=== PATIENT | female | born 1940 | race Two or more races ===

== ENCOUNTER 2017-05-31 09:32 | Inpatient (IN) | payer OTHER ==
--- NOTE | 2017-05-31 10:23 | PDOC ---
History of Present Illness - General Chief Complaint: Weakness Stated Complaint: WEAKNESS/LOSS OF APPETITE Time Seen by Provider: 05/31/17 10:20 History Source: Patient - History of Present Illness Initial Comments: 05/31/17 10:51 CC: Acute onset of shortness of breath Patient is a 76 y.o. female with a PMH of HTN, NIDDM who presents c/o shortness of breath upon awakening this morning. Patient denies any chest pain, nausea, diaphoresis, however does not a headache consistent with headaches she experience frequently. Patient denies any recent sick contact, travel or medication changes. Patient has not recieved flu shot. Past History - Past Medical History Allergies/Adverse Reactions: Allergies Allergy/AdvReac Type Severity Reaction Status Date / Time morphine Allergy Verified 05/31/17 13:44 Home Medications: Ambulatory Orders Amlodipine Bes/Olmesartan Med [Amlodipine-Olmesartan 5-40 mg] 1 each PO DAILY Atorvastatin Calcium 40 mg PO DAILY 05/31/17 Ezetimibe 10 mg PO DAILY 05/31/17 Levothyroxine [Synthroid -] 50 mcg PO DAILY 05/31/17 Metoprolol Succinate [Toprol Xl -] 25 mg PO DAILY 05/31/17 HTN: Yes - Surgical History Abdominal Surgery: No Appendectomy: No Cardiac Surgery: No Cholecystectomy: No - Suicide/Smoking/Psychosocial Hx Smoking History: Never smoked Have you smoked in the past 12 months: No Information on smoking cessation initiated: No Hx Alcohol Use: No Drug/Substance Use Hx: No Review of Systems - Review of Systems Constitutional: No: Chills, Fever Respiratory: Yes: Shortness of Breath. No: Cough Cardiac (ROS): No: Chest Pain, Lightheadedness, Palpitations ABD/GI: No: Constipated, Diarrhea, Nausea, Vomiting : No: Burning, Dysuria All Other Systems: Reviewed and Negative *Physical Exam - Vital Signs Last Vital Signs Temp Pulse Resp BP Pulse Ox 99.2 F 98 H 16 146/89 98 05/31/17 09:41 05/31/17 10:00 05/31/17 09:41 05/31/17 09:41 05/31/17 10:00 - Physical Exam General Appearance: Yes: Nourished, Appropriately Dressed HEENT: positive: EOMI, ALYSA Neck: positive: Trachea midline, Supple Respiratory/Chest: positive: Lungs Clear, Normal Breath Sounds Cardiovascular: positive: Regular Rhythm, Regular Rate, S1, S2 Gastrointestinal/Abdominal: positive: Normal Bowel Sounds, Soft Musculoskeletal: negative: CVA Tenderness (R), CVA Tenderness (L) Extremity: positive: Normal Capillary Refill, Normal Inspection Integumentary: positive: Normal Color, Dry, Warm Neurologic: positive: team foreman II-XII NML intact, Fully Oriented, Alert ED Treatment Course - LABORATORY CBC & Chemistry Diagram: 06/02/17 07:00 06/03/17 06:00 Medical Decision Making - Medical Decision Making 05/31/17 11:00 Patient is a 76 y.o. female who presents with acute onset of shortness of breath but no cough, fever, chills viral URI. Initial DDx is primarily infectious given patient is febrile and slightly tachycardic (SIRS 2/4). Source of infection possibly viral, UTI, or bacterial. PLAN: 1. CBC, CMP 2. CXR 3. UA 4. Tylenol 05/31/17 12:23 CBC significant for leukocytosis (19.4). Chest X-ray shows no acute pathology. Contacted Dr. Garcia (covering for patient's PCP, Dr. Arnold). 05/31/17 12:47 Dr. Garcia accepts for admission to inpatient med/surg. Patient tolerating PO intake, ambulatory. *DC/Admit/Observation/Transfer Diagnosis at time of Disposition: Fever - Discharge Dispostion Condition at time of disposition: Good Admit: Yes - Referrals
[2017-05-31] MEDS ORDERED: SODIUM CHLORIDE 0.9% 1000 ML INFUS.BAG IV ONE (11:19)
[2017-05-31] MEDS ORDERED: ACETAMINOPHEN 325 MG TABLET (FP) PO ONE (11:19)
[2017-05-31 11:53] LABS: BASOPHIL 0.5 % (0-2.0); MCH 26.6 pg (25.7-33.7); MCHC 31.6 g/dl (32.0-36.0); MEAN CELL VOLUME 84.2 fl (80-96); MEAN PLT VOLUME 9.5 fl (7.5-11.1); PLATELET COUNT 215 K/MM3 (134-434); RDW 14.4 % (11.6-15.6); WHITE BLOOD COUNT 19.4 K/mm3 (4.0-10.0)
[2017-05-31] MEDS ORDERED: ACETAMINOPHEN 325 MG TABLET (FP) ONE (11:53)
[2017-05-31 12:19] LABS: TROPONIN I < 0.02 ng/ml (0.00-0.05)
[2017-05-31 12:26] LABS: CPK 181 IU/L (26-192)
[2017-05-31 12:32] LABS: ALBUMIN 3.7 g/dl (3.4-5.0); ANION GAP 10 (8-16); CALCIUM 9.4 mg/dL (8.5-10.1); CO2 26 mmol/L (21-32)
[2017-05-31 12:38] LABS: BILIRUBIN,TOTAL 0.8 mg/dL (0.2-1.0); GLUCOSE,RANDOM 107 mg/dL (74-106); SGPT/ALT 76 U/L (12-78); TOT PROT 8.1 g/dl (6.4-8.2)
[2017-05-31 12:41] LABS: ALK PHOS 87 U/L (45-117)
[2017-05-31 12:43] LABS: MAGNESIUM 2.3 mg/dL (1.8-2.4); SGOT/AST 161 U/L (15-37)
[2017-05-31] MEDS: METOPROLOL SUCCINATE 50 MG TAB.SR.24H (FP) PO SCH (12:53)
[2017-05-31] MEDS ORDERED: METOPROLOL SUCCINATE 50 MG TAB.SR.24H (FP) ONE (13:13)
--- NOTE | 2017-05-31 13:15 | PDOC ---
Attending Attestation - Resident Resident Name: Bernarda Ortega - ED Attending Attestation I have performed the following: I have examined & evaluated the patient, The case was reviewed & discussed with the resident, I agree w/resident's findings & plan, Exceptions are as noted - HPI HPI: 05/31/17 13:25 76 F with h/o DM, HTN presenting to ER with weakness. Pt states that she began to feel weak today upon waking up. She also reports subjective fevers at home but no other complaints. No N/V/D. No cough. No dysuria. No abdominal pain. Pt did report some mild dyspnea in the morning but denies CP. She states that she no longer feels SOB. - Physicial Exam PE: 05/31/17 13:26 "GENERAL: Awake, alert, and fully oriented, in no acute distress HEAD: No signs of trauma EYES: PERRLA, EOMI, sclera anicteric, conjunctiva clear ENT: Auricles normal inspection, hearing grossly normal, nares patent, oropharynx clear without exudates. Moist mucosa NECK: Nontender, no stepoffs, Normal ROM, supple, no lymphadenopathy, JVD, or masses LUNGS: Breath sounds equal, clear to auscultation bilaterally. No wheezes, and no crackles HEART: Regular rate and rhythm, normal S1 and S2, no murmurs, rubs or gallops ABDOMEN: Soft, nontender, normoactive bowel sounds. No guarding, no rebound. No masses EXTREMITIES: Normal range of motion, no edema. No clubbing or cyanosis. No cords, erythema, or tenderness NEUROLOGICAL: Cranial nerves II through XII intact. 5/5 strength and sensation in all extremities, Normal speech, normal gait SKIN: Warm, Dry, normal turgor, no rashes or lesions noted. " - Medical Decision Making 05/31/17 13:26 76 F with fever, weakness x 1 day. Likely infected, though source unclear at this time as pt has no focal s/s. UTI vs PNA vs viral syndrome. Pt also reported SOB earlier today, now resolved. Possibly suggesting PNA or URI. Pt with no s/s DVT on exam, no h/o DVT/PE, no leg swelling. - Labs, cultures, flu swab - CXR, UA
[2017-05-31 13:21] LABS: MCH 26.7 pg (25.7-33.7); MCHC 31.8 g/dl (32.0-36.0); MEAN CELL VOLUME 83.9 fl (80-96); MEAN PLT VOLUME 8.3 fl (7.5-11.1); PLATELET COUNT 187 K/MM3 (134-434); RDW 14.6 % (11.6-15.6); WHITE BLOOD COUNT 17.2 K/mm3 (4.0-10.0)
[2017-05-31 13:45] LABS: ALBUMIN 3.3 g/dl (3.4-5.0); ANION GAP 7 (8-16); BILIRUBIN,TOTAL 0.6 mg/dL (0.2-1.0); CALCIUM 8.2 mg/dL (8.5-10.1); CO2 27 mmol/L (21-32); CREATININE 1.9 mg/dL (0.55-1.02); GLUCOSE,RANDOM 106 mg/dL (74-106); SGOT/AST 103 U/L (15-37); SGPT/ALT 61 U/L (12-78); TOT PROT 6.6 g/dl (6.4-8.2)
[2017-05-31 13:48] LABS: ALK PHOS 75 U/L (45-117)
[2017-05-31 13:50] LABS: URINE APPEARANCE SLCLOUDY; URINE BILIRUBIN NEGATIVE (NEGATIVE); URINE BLOOD NEGATIVE (NEGATIVE); URINE COLOR LTYELLOW; URINE GLUCOSE (UA) NEGATIVE (NEGATIVE); URINE KETONE NEGATIVE (NEGATIVE); URINE NITRITE NEGATIVE (NEGATIVE); URINE PROTEIN NEGATIVE (NEGATIVE); URINE UROBILINOGEN NEGATIVE mg/dL (0.2-1.0)
[2017-05-31 15:47] VITALS: BMI 30.4
--- NOTE | 2017-05-31 16:35 | PN ---
Progress Note (short form) - Note Progress Note: ID consult dictated 76 year old female with several day history of fever (didnot take temp at e), fatigue, anorexia admitted with low grade fever and leukocytosis no complaints of headache, nausea or vomiting no cough no diarrhea no dysuria no pain no joint swelling no rash no travel no sick contacts no dental work cxray negative UA negative feels improved after getting ivf in ED imp/reccd low grade fever-?source leukocytosis PE unremarkable continue hydration esr/crp, repeat labs in am * observe off antibiotics f/u cultures RAQUEL- continue gentle hydration check renal sonogram Problem List - Problems (1) Fever Code(s): R50.9 - FEVER, UNSPECIFIED (2) Leukocytosis Code(s): D72.829 - ELEVATED WHITE BLOOD CELL COUNT, UNSPECIFIED (3) RAQUEL (acute kidney injury) Code(s): N17.9 - ACUTE KIDNEY FAILURE, UNSPECIFIED
[2017-05-31 16:46] LABS: URINE LEUK ESTERASE 1+ (NEGATIVE)
[2017-05-31 17:47] LABS: URINE BACTERIA MANY /hpf (NEGATIVE); URINE RBC NONE SEEN /hpf (0-3)
[2017-05-31] MEDS ORDERED: PNEUMOC 13-VAL CONJ-DIP CRM/PF 0.5 ML DISP.SYRIN IM ONE (18:00)
[2017-05-31] MEDS ORDERED: SODIUM CHLORIDE 1,000 ML IV ONE (20:00)
[2017-05-31] MEDS: RANITIDINE HCL 150 MG TABLET (FP) PO SCH (21:14)
[2017-05-31] MEDS: ATORVASTATIN CA 40 MG TABLET (FP) PO SCH (21:14)
[2017-06-01] MEDS: LEVOTHYROXINE NA 50 MCG TABLET (FP) PO SCH (06:11)
[2017-06-01 08:09] LABS: ANION GAP 7 (8-16); BASOPHIL 0.3 % (0-2.0); CALCIUM 8.4 mg/dL (8.5-10.1); CO2 26 mmol/L (21-32); CREATININE 1.7 mg/dL (0.55-1.02); EOSINOPHIL 0.5 % (0-4.5); GLUCOSE,RANDOM 74 mg/dL (74-106); MCH 27.1 pg (25.7-33.7); MCHC 32.3 g/dl (32.0-36.0); MEAN CELL VOLUME 83.9 fl (80-96); MEAN PLT VOLUME 8.9 fl (7.5-11.1); NEUTROPHILS 74.4 % (42.8-82.8); PLATELET COUNT 169 K/MM3 (134-434); RDW 14.8 % (11.6-15.6); SGOT/AST 61 U/L (15-37); SGPT/ALT 47 U/L (12-78); WHITE BLOOD COUNT 12.2 K/mm3 (4.0-10.0)
[2017-06-01 08:18] LABS: ALK PHOS 70 U/L (45-117); BILIRUBIN,TOTAL 0.5 mg/dL (0.2-1.0); TOT PROT 6.3 g/dl (6.4-8.2)
[2017-06-01] MEDS: amLODIPine BESYLATE 5 MG TABLET (FP) PO SCH (10:51)
[2017-06-01] MEDS: RANITIDINE HCL 150 MG TABLET (FP) PO SCH ×2 (10:52→21:40)
[2017-06-01] MEDS: VALSARTAN 80 MG TABLET (UD) PO SCH (10:52)
[2017-06-01] MEDS: METOPROLOL SUCCINATE 50 MG TAB.SR.24H (FP) PO SCH (10:52)
--- NOTE | 2017-06-01 11:14 | HP ---
Admitting History and Physical - Primary Care Physician PCP: Misa Garcia - Admission Chief Complaint: RESP DISTRESS History of Present Illness: Patient is a 76 y.o. female with a PMH of HTN, NIDDM who presents c/o shortness of breath upon awakening this morning. Patient denies any chest pain, nausea, diaphoresis, however does not a headache consistent with headaches she experience frequently. Patient denies any recent sick contact, travel or medication changes. Patient has not recieved flu shot. History Source: Patient, Medical Record Limitations to Obtaining History: No Limitations - Past Medical History Cardiovascular: Yes: HTN Endocrine: Yes: Hypothyroidism - Smoking History Smoking history: Never smoked Have you smoked in the past 12 months: No - Alcohol/Substance Use Hx Alcohol Use: No Home Medications - Allergies Allergies/Adverse Reactions: Allergies Allergy/AdvReac Type Severity Reaction Status Date / Time morphine Allergy Verified 05/31/17 13:44 - Home Medications Home Medications: Ambulatory Orders Amlodipine Bes/Olmesartan Med [Amlodipine-Olmesartan 5-40 mg] 1 each PO DAILY Atorvastatin Calcium 40 mg PO DAILY 05/31/17 Ezetimibe 10 mg PO DAILY 05/31/17 Levothyroxine [Synthroid -] 50 mcg PO DAILY 05/31/17 Metoprolol Succinate [Toprol Xl -] 25 mg PO DAILY 05/31/17 Review of Systems - Review of Systems Constitutional: reports: Loss of Appetite, Weakness Eyes: reports: No Symptoms HENT: reports: No Symptoms Neck: reports: No Symptoms Cardiovascular: reports: No Symptoms Respiratory: reports: Cough, SOB, SOB on Exertion Gastrointestinal: reports: No Symptoms Genitourinary: reports: No Symptoms Musculoskeletal: reports: No Symptoms Integumentary: reports: No Symptoms Neurological: reports: No Symptoms Endocrine: reports: No Symptoms Hematology/Lymphatic: reports: No Symptoms Psychiatric: reports: No Symptoms Physical Examination Vital Signs: Vital Signs Temperature 99.1 F 06/01/17 10:52 Pulse Rate 80 06/01/17 10:52 Respiratory Rate 18 06/01/17 10:52 Blood Pressure 134/63 06/01/17 10:52 O2 Sat by Pulse Oximetry (%) 95 05/31/17 21:00 Constitutional: Yes: Mild Distress Eyes: Yes: WNL HENT: Yes: WNL Neck: Yes: WNL Cardiovascular: Yes: WNL Respiratory: Yes: On Nasal O2, SOB Gastrointestinal: Yes: WNL Renal/: Yes: Other Musculoskeletal: Yes: Muscle Weakness Extremities: Yes: WNL Edema: No Integumentary: Yes: WNL Wound/Incision: Yes: Clean/Dry Neurological: Yes: WNL ...Motor Strength: WNL Psychiatric: Yes: WNL Labs: CBC, BMP 06/01/17 06:00 06/01/17 06:00 Imaging - Results Chest X-ray: Report Reviewed Problem List - Problems (1) RAQUEL (acute kidney injury) Code(s): N17.9 - ACUTE KIDNEY FAILURE, UNSPECIFIED (2) Fever Code(s): R50.9 - FEVER, UNSPECIFIED (3) Leukocytosis Code(s): D72.829 - ELEVATED WHITE BLOOD CELL COUNT, UNSPECIFIED (4) Respiratory distress Code(s): R06.00 - DYSPNEA, UNSPECIFIED Assessment/Plan UTI IV ABX ID F/U RENAL EVAL FOR INSUFFICIENCY VS AZOTEMIA RENAL SONO CXR CLEAR DOUBT THERE IS A RESPIRATORY DISORDER AT THIS TIME
--- NOTE | 2017-06-01 12:02 | CONS ---
DATE OF CONSULTATION: 05/31/2017 REQUESTED BY: Misa Garcia MD This is a 76-year-old woman, past history of hypertension, rmz-lfvsypu-mhpmucyds diabetes. She reports for the last 3 or 4 days, she has not been feeling well, she has felt feverish but she has not taken her temperature at home. She has been tired and she has not been eating well. In fact she has anorexia and has really had no appetite. She presented to the emergency room with these complaints. She had no cough, no headache, no sore throat. No nausea, vomiting, chest pain, abdominal pain, diarrhea, or dysuria. No rash. No sick contacts. No pets. No travel. She was evaluated in the ER, where she was found to have a very low-grade temperature, 100.8, and a heart rate of 98. She was given some IV fluids. White count was noted to be elevated at 19 and she was admitted for observation. She is currently resting comfortably, reports feeling much improved after receiving fluids. Past medical history is notable for jwh-wnfyrsa-lnrhvlpeo diabetes, which is diet controlled, and hypertension. She has no known drug allergies. Her medications at home include amlodipine, olmesartan, atorvastatin, ezetimibe, levothyroxine, and metoprolol. Surgical history is notable for cholecystectomy. She has a history of hypertension, hypothyroidism, and mpr-byegawf-ibucgdwkk diabetes. SOCIAL HISTORY: There is no history of cigarette use. She lives in a senior apartment. She is independent. REVIEW OF SYSTEMS: As per HPI. PHYSICAL EXAMINATION: Vital Signs: Currently afebrile, 98.6. T-max is 100.1. Current pulse is 69. Blood pressure 144/70. Respiratory rate is 18. She is saturating 99% on room air. HEENT: Normocephalic. Her eyes are anicteric. She has no conjunctival hemorrhages. Mouth is clear. She has fair dentition. No recent dental visits. No thrush. No pharyngitis. Neck: Supple. She has no carotid enlargement. Lungs: Clear to auscultation. Heart: Regular rate and rhythm. She has no murmurs. Abdomen: Soft, nontender. She has no suprapubic or CVA tenderness. Extremities: Without edema. She has no rash. Labs are notable for white count of 19.4. That was repeated to 17.2. Hemoglobin 12.7, platelets 187. BUN was 16 and creatinine 2 on admission, with a glucose of 107. AST is 103. Urinalysis is pending and urine and blood cultures are pending. Influenza screen is negative. Chest x-ray, which is a PA and lateral, is negative for acute infiltrate. In summary, this is a 76-year-old woman with a febrile illness of unclear etiology. She does not appear toxic in any way. Would continue hydration, check a sedimentation rate, CRP, recheck labs in the morning, and follow up cultures. Number 2, acute kidney injury: Continue gentle hydration; would check a renal sonogram. Baseline creatinine is not known. ANSON JHAVERI M.D. [id number]
[2017-06-01] MEDS ORDERED: DEXTROSE 5%-WATER - 50 ML IVPB ONE (12:25)
[2017-06-01] MEDS ORDERED: cefTRIAXone SODIUM 1 GM VIAL ONE (12:25)
[2017-06-01] MEDS: CEFTRIAXONE 1 GM in DEXTROSE 5%-WATER - 50 ML IVPB SCH (13:27)
--- NOTE | 2017-06-01 15:37 | CON.NEP ---
Consult Consult Specialty:: nephrology Referred by:: melvina Reason for Consultation:: azotemia kidney failure - History of Present Illness Chief Complaint: azotemia History of Present Illness: admitted - Past Medical History Cardio/Vascular: Yes: HTN Endocrine: Yes: Hypothyroidism - Alcohol/Substance Use Hx Alcohol Use: No - Smoking History Smoking history: Never smoked Have you smoked in the past 12 months: No Home Medications - Allergies Allergies/Adverse Reactions: Allergies Allergy/AdvReac Type Severity Reaction Status Date / Time morphine Allergy Verified 05/31/17 13:44 - Home Medications Home Medications: Ambulatory Orders Amlodipine Bes/Olmesartan Med [Amlodipine-Olmesartan 5-40 mg] 1 each PO DAILY Atorvastatin Calcium 40 mg PO DAILY 05/31/17 Ezetimibe 10 mg PO DAILY 05/31/17 Levothyroxine [Synthroid -] 50 mcg PO DAILY 05/31/17 Metoprolol Succinate [Toprol Xl -] 25 mg PO DAILY 05/31/17 Nephrology Consult - Height Height: 5 ft 2 in - Weight Weight: 166 lb 9.6 oz - BMI Body Mass Index (BMI): 30.4 - Lab Results CBC,BMP: CBC, BMP 06/01/17 06:00 06/01/17 06:00 Anion Gap: Anion Gap Anion Gap 7 (8-16) L 06/01/17 06:00 - Physical Examination Vital Signs: Vital Signs Temperature 98.7 F 06/01/17 13:58 Pulse Rate 86 06/01/17 13:58 Respiratory Rate 20 06/01/17 13:58 Blood Pressure 155/70 06/01/17 13:58 O2 Sat by Pulse Oximetry (%) 95 05/31/17 21:00 Assessment/Plan UTI? febrile illness unclear cause AZOTEMIA -unclear etiology, Non- Proteinuric, no def history of CKD but her renal sono is c/w CKD (left kidney atrophy noted, with cortical thinning and increased density) Risk factors for CKD-HTN, Age, and DM R/O Renovascular HTN- her K is normal, not low, and BPs are high but not markedly so. There is little to say that there is renovascular HTN rather than chronic renal ischemia at her age, she seems to be adequately managed medically the situation is compatible with prerenal azotemia 2/2 acute illness and fluid deficits The improvement in renal function on follow up labs is telling of an acute component now it remains to eval what her baseline renal function is Plan- hydrate well follow BMP next day or two
[2017-06-01] MEDS: ACETAMINOPHEN 500 MG TABLET (FP) PO PRN (17:58)
[2017-06-01] MEDS: ATORVASTATIN CA 40 MG TABLET (FP) PO SCH (21:40)
[2017-06-02] MEDS: LEVOTHYROXINE NA 50 MCG TABLET (FP) PO SCH (06:08)
[2017-06-02 08:03] LABS: MCH 26.6 pg (25.7-33.7); MEAN PLT VOLUME 8.8 fl (7.5-11.1); PLATELET COUNT 186 K/MM3 (134-434); RDW 14.3 % (11.6-15.6); WHITE BLOOD COUNT 11.8 K/mm3 (4.0-10.0)
[2017-06-02 08:41] LABS: CALCIUM 8.8 mg/dL (8.5-10.1)
[2017-06-02 08:47] LABS: ALK PHOS 81 U/L (45-117); ANION GAP 8 (8-16); BILIRUBIN,TOTAL 0.7 mg/dL (0.2-1.0); CO2 28 mmol/L (21-32); CREATININE 1.5 mg/dL (0.55-1.02); GLUCOSE,RANDOM 84 mg/dL (74-106); SGOT/AST 39 U/L (15-37); SGPT/ALT 42 U/L (12-78); TOT PROT 6.6 g/dl (6.4-8.2)
[2017-06-02] MEDS ORDERED: PNEUMOC 13-VAL CONJ-DIP CRM/PF 0.5 ML DISP.SYRIN IM ONE (10:00)
[2017-06-02] MEDS ORDERED: cefTRIAXone SODIUM 1 GM VIAL ONE (10:32)
[2017-06-02] MEDS ORDERED: DEXTROSE 5%-WATER - 50 ML IVPB ONE (10:32)
[2017-06-02] MEDS: CEFTRIAXONE 1 GM in DEXTROSE 5%-WATER - 50 ML IVPB SCH (10:39)
[2017-06-02] MEDS: RANITIDINE HCL 150 MG TABLET (FP) PO SCH ×2 (10:40→21:57)
[2017-06-02] MEDS: METOPROLOL SUCCINATE 50 MG TAB.SR.24H (FP) PO SCH (10:40)
[2017-06-02] MEDS: VALSARTAN 80 MG TABLET (UD) PO SCH (10:40)
[2017-06-02] MEDS: amLODIPine BESYLATE 5 MG TABLET (FP) PO SCH (10:40)
--- NOTE | 2017-06-02 10:42 | PN ---
Progress Note, Physician Chief Complaint: ID Fells better Afebrile urine symptoms improved NO fever - Current Medication List Current Medications: Active Medications Acetaminophen (Tylenol -) 500 mg PO Q6H PRN PRN Reason: FEVER OR PAIN Last Admin: 06/01/17 17:58 Dose: 500 mg Amlodipine Besylate (Norvasc -) 5 mg PO DAILY [facility] Last Admin: 06/01/17 10:51 Dose: 5 mg Atorvastatin Calcium (Lipitor -) 40 mg PO HS [facility] Last Admin: 06/01/17 21:40 Dose: 40 mg Ceftriaxone Sodium 1 gm/ (Dextrose) 50 mls @ 100 mls/hr IVPB DAILY [facility] Last Admin: 06/01/17 13:27 Dose: 100 mls/hr Levothyroxine Sodium (Synthroid -) 50 mcg PO DAILY@0700 [facility] Last Admin: 06/02/17 06:08 Dose: 50 mcg Metoprolol Succinate (Toprol Xl -) 50 mg PO DAILY [facility] Last Admin: 06/01/17 10:52 Dose: 50 mg Pneumococcal 13-Valent Conj Vacc (Prevnar 13 Syringe -) 0.5 ml IM .ONCE ONE Stop: 06/02/17 10:01 Ranitidine HCl (Zantac -) 150 mg PO BID [facility] Last Admin: 06/01/17 21:40 Dose: 150 mg Valsartan (Diovan -) 80 mg PO DAILY [facility] Last Admin: 06/01/17 10:52 Dose: 80 mg - Objective Vital Signs: Vital Signs Temperature 98.7 F 06/02/17 05:41 Pulse Rate 79 06/02/17 05:41 Respiratory Rate 18 06/02/17 05:41 Blood Pressure 141/64 06/02/17 05:41 O2 Sat by Pulse Oximetry (%) 99 06/01/17 21:00 Constitutional: Yes: Well Nourished, No Distress HENT: Yes: WNL, Atraumatic Neck: Yes: WNL, Supple Cardiovascular: Yes: Regular Rate and Rhythm, S1, S2 Respiratory: Yes: WNL, CTA Bilaterally Gastrointestinal: Yes: WNL, Normal Bowel Sounds, Soft. No: Tenderness Genitourinary: No: CVA Tenderness - Left, CVA Tenderness - Right Labs: CBC, BMP 06/02/17 07:00 06/02/17 07:00 Assessment/Plan Microbiology 05/31/17 13:20 Urine - Urine Clean Catch Urine Culture - Final Klebsiella Pneumoniae 05/31/17 11:28 Blood - Peripheral Venous Blood Culture - Preliminary NO GROWTH OBTAINED AFTER 24 HOURS, INCUBATION TO CONTINUE FOR 4 DAYS. 05/31/17 11:28 Blood - Peripheral Venous Blood Culture - Preliminary NO GROWTH OBTAINED AFTER 24 HOURS, INCUBATION TO CONTINUE FOR 4 DAYS. Laboratory Tests 05/31/17 06/02/17 06/02/17 13:20 07:00 07:00 WBC 11.8 H Hgb 12.1 Plt Count 186 BUN 15 Creatinine 1.5 H Creat Clearance w eGFR 33.58 Urine WBC 5-10 Ur Epithelial Cells 3-5 Urine Bacteria Many Assessment KLebsiella UTI Plan Keflex 500mg bid for 5 days
--- NOTE | 2017-06-02 11:07 | PN ---
Progress Note, Physician History of Present Illness: Pt seen and examined at bedside. She is awake and alert. She denies shortness of breath. She denies dysuria. - Current Medication List Current Medications: Active Medications Acetaminophen (Tylenol -) 500 mg PO Q6H PRN PRN Reason: FEVER OR PAIN Last Admin: 06/01/17 17:58 Dose: 500 mg Amlodipine Besylate (Norvasc -) 5 mg PO DAILY [facility] Last Admin: 06/02/17 10:40 Dose: 5 mg Atorvastatin Calcium (Lipitor -) 40 mg PO HS [facility] Last Admin: 06/01/17 21:40 Dose: 40 mg Cephalexin HCl (Keflex -) 500 mg PO BID [facility] Levothyroxine Sodium (Synthroid -) 50 mcg PO DAILY@0700 [facility] Last Admin: 06/02/17 06:08 Dose: 50 mcg Metoprolol Succinate (Toprol Xl -) 50 mg PO DAILY [facility] Last Admin: 06/02/17 10:40 Dose: 50 mg Pneumococcal 13-Valent Conj Vacc (Prevnar 13 Syringe -) 0.5 ml IM .ONCE ONE Stop: 06/02/17 10:01 Ranitidine HCl (Zantac -) 150 mg PO BID [facility] Last Admin: 06/02/17 10:40 Dose: 150 mg Valsartan (Diovan -) 80 mg PO DAILY [facility] Last Admin: 06/02/17 10:40 Dose: 80 mg - Objective Vital Signs: Vital Signs Temperature 98.7 F 06/02/17 05:41 Pulse Rate 79 06/02/17 05:41 Respiratory Rate 18 06/02/17 05:41 Blood Pressure 141/64 06/02/17 05:41 O2 Sat by Pulse Oximetry (%) 99 06/01/17 21:00 Constitutional: Yes: Calm Eyes: Yes: Conjunctiva Clear HENT: Yes: Atraumatic Neck: Yes: Supple Cardiovascular: Yes: S1, S2 Respiratory: Yes: CTA Bilaterally Gastrointestinal: Yes: Soft Genitourinary: Yes: WNL Musculoskeletal: Yes: WNL Edema: No Neurological: Yes: Oriented Psychiatric: Yes: Oriented Labs: CBC, BMP 06/02/17 07:00 06/02/17 07:00 Problem List - Problems (1) RAQUEL (acute kidney injury) Code(s): N17.9 - ACUTE KIDNEY FAILURE, UNSPECIFIED (2) UTI (urinary tract infection) Code(s): N39.0 - URINARY TRACT INFECTION, SITE NOT SPECIFIED Assessment/Plan Current Medications Generic Name Dose Route Start Last Admin Trade Name Aby PRN Reason Stop Dose Admin Acetaminophen 500 mg 05/31/17 12:49 06/01/17 17:58 Tylenol - PO 500 mg Q6H PRN Administration FEVER OR PAIN Amlodipine Besylate 5 mg 06/01/17 10:00 06/02/17 10:40 Norvasc - PO 5 mg DAILY [facility] Administration Atorvastatin Calcium 40 mg 05/31/17 22:00 06/01/17 21:40 Lipitor - PO 40 mg HS [facility] Administration Cephalexin HCl 500 mg 06/02/17 22:00 Keflex - PO BID [facility] Levothyroxine Sodium 50 mcg 06/01/17 07:00 06/02/17 06:08 Synthroid - PO 50 mcg DAILY@0700 [facility] Administration Metoprolol Succinate 50 mg 05/31/17 13:00 06/02/17 10:40 Toprol Xl - PO 50 mg DAILY [facility] Administration Pneumococcal 13-Valent Conj Vacc 0.5 ml 06/02/17 10:00 Prevnar 13 Syringe - IM 06/02/17 10:01 .ONCE ONE Ranitidine HCl 150 mg 05/31/17 22:00 06/02/17 10:40 Zantac - PO 150 mg BID [facility] Administration Valsartan 80 mg 06/01/17 10:00 06/02/17 10:40 Diovan - PO 80 mg DAILY [facility] Administration Laboratory Tests 05/31/17 05/31/17 05/31/17 11:28 11:28 13:20 WBC 19.4 H Creatinine 2.0 H Urine Protein Negative Urine Blood Negative 06/02/17 06/02/17 07:00 07:00 WBC 11.8 H Creatinine 1.5 H Urine Protein Urine Blood Impression 1. RAQUEL resolving 2. UTI 3. hypothyroidism 4. HTN 5. hyperlipidemia Plan - renal function is improving - cont abx - ID input appreciated - repeat labs in am - urine negative for blood or protein - will follow Dr Newell
--- NOTE | 2017-06-02 16:08 | PN ---
Progress Note, Physician Chief Complaint: awake alert family bedside - Current Medication List Current Medications: Active Medications Acetaminophen (Tylenol -) 500 mg PO Q6H PRN PRN Reason: FEVER OR PAIN Last Admin: 06/01/17 17:58 Dose: 500 mg Amlodipine Besylate (Norvasc -) 5 mg PO DAILY [facility] Last Admin: 06/02/17 10:40 Dose: 5 mg Atorvastatin Calcium (Lipitor -) 40 mg PO HS [facility] Last Admin: 06/01/17 21:40 Dose: 40 mg Cephalexin HCl (Keflex -) 500 mg PO BID [facility] Levothyroxine Sodium (Synthroid -) 50 mcg PO DAILY@0700 [facility] Last Admin: 06/02/17 06:08 Dose: 50 mcg Metoprolol Succinate (Toprol Xl -) 50 mg PO DAILY [facility] Last Admin: 06/02/17 10:40 Dose: 50 mg Pneumococcal 13-Valent Conj Vacc (Prevnar 13 Syringe -) 0.5 ml IM .ONCE ONE Stop: 06/02/17 10:01 Ranitidine HCl (Zantac -) 150 mg PO BID [facility] Last Admin: 06/02/17 10:40 Dose: 150 mg Valsartan (Diovan -) 80 mg PO DAILY [facility] Last Admin: 06/02/17 10:40 Dose: 80 mg - Objective Vital Signs: Vital Signs Temperature 98.3 F 06/02/17 14:11 Pulse Rate 80 06/02/17 14:11 Respiratory Rate 18 06/02/17 14:11 Blood Pressure 150/75 06/02/17 14:11 O2 Sat by Pulse Oximetry (%) 99 06/02/17 09:00 Constitutional: Yes: No Distress Eyes: Yes: WNL HENT: Yes: WNL Neck: Yes: WNL Cardiovascular: Yes: WNL Respiratory: Yes: WNL Gastrointestinal: Yes: WNL Genitourinary: Yes: WNL Musculoskeletal: Yes: WNL Extremities: Yes: WNL Edema: No Peripheral Pulses WNL: Yes Integumentary: Yes: WNL Wound/Incision: Yes: Clean/Dry Neurological: Yes: WNL ...Motor Strength: WNL Psychiatric: Yes: WNL Labs: CBC, BMP 06/02/17 07:00 06/02/17 07:00 Problem List - Problems (1) RAQUEL (acute kidney injury) Code(s): N17.9 - ACUTE KIDNEY FAILURE, UNSPECIFIED (2) Fever Code(s): R50.9 - FEVER, UNSPECIFIED (3) Leukocytosis Code(s): D72.829 - ELEVATED WHITE BLOOD CELL COUNT, UNSPECIFIED (4) Respiratory distress Code(s): R06.00 - DYSPNEA, UNSPECIFIED Assessment/Plan UIT ON KEFLEX OOB TO CHAIR HTN BP ELEVATED KEEP OVER NIGHT DC PLANNING WITH [facility] IN AM
[2017-06-02] MEDS ORDERED: VALSARTAN 80 MG TABLET (UD) PO ONE (16:09)
[2017-06-02] MEDS ORDERED: amLODIPine BESYLATE 5 MG TABLET (FP) PO ONE (16:09)
[2017-06-02] MEDS: CEPHALEXIN MONOHYDRATE 500 MG CAPSULE (UD) PO SCH (21:57)
[2017-06-02] MEDS: ATORVASTATIN CA 40 MG TABLET (FP) PO SCH (21:57)
[2017-06-03] MEDS: ACETAMINOPHEN 500 MG TABLET (FP) PO PRN (05:46)
[2017-06-03] MEDS: LEVOTHYROXINE NA 50 MCG TABLET (FP) PO SCH (06:00)
[2017-06-03 07:47] LABS: ANION GAP 9 (8-16); CALCIUM 8.4 mg/dL (8.5-10.1); CO2 28 mmol/L (21-32); CREATININE 1.6 mg/dL (0.55-1.02); GLUCOSE,RANDOM 102 mg/dL (74-106)
[2017-06-03] MEDS ORDERED: amLODIPine BESYLATE 10 MG TABLET (FP) PO SCH (10:00)
[2017-06-03] MEDS ORDERED: VALSARTAN 160 MG TABLET (UD) PO SCH (10:00)
[2017-06-03] MEDS: RANITIDINE HCL 150 MG TABLET (FP) PO SCH (10:10)
[2017-06-03] MEDS: METOPROLOL SUCCINATE 50 MG TAB.SR.24H (FP) PO SCH (10:10)
[2017-06-03] MEDS: CEPHALEXIN MONOHYDRATE 500 MG CAPSULE (UD) PO SCH (10:10)
--- NOTE | 2017-06-03 10:59 | DS ---
Physical Examination Vital Signs: Vital Signs Temperature 99.1 F 06/03/17 05:49 Pulse Rate 80 06/03/17 05:49 Respiratory Rate 20 06/03/17 05:49 Blood Pressure 150/82 06/03/17 05:49 O2 Sat by Pulse Oximetry (%) 95 06/02/17 21:00 Constitutional: Yes: No Distress Eyes: Yes: WNL HENT: Yes: WNL Neck: Yes: WNL Cardiovascular: Yes: WNL Respiratory: Yes: [place] Gastrointestinal: Yes: WNL Renal/: Yes: WNL Musculoskeletal: Yes: WNL Extremities: Yes: WNL Edema: No Peripheral Pulses WNL: Yes Integumentary: Yes: WNL Wound/Incision: Yes: Clean/Dry Neurological: Yes: WNL ...Motor Strength: WNL Psychiatric: Yes: WNL Labs: CBC, BMP 06/02/17 07:00 06/03/17 06:00 Discharge Summary Reason For Visit: FEVER Current Active Problems RAQUEL (acute kidney injury) (Acute) Fever (Acute) Leukocytosis (Acute) Respiratory distress (Acute) UTI (urinary tract infection) (Acute) Procedures: Principal: LABS/RENAL SONO Hospital Course: TREATED WITH IV ABX FOR UTI, CHANGED TO PO, BP AND RENAL FUNCTION IMPROVED, HOME NURSING SERVICE [facility] Condition: Good - Instructions Diet, Activity, Other Instructions: LOW SODIUM LOW FAT [facility] HOME CARE SEE DR ARNOLD 2 WEEKS Referrals: Miguel Arnold [Primary Care Provider] - Disposition: VNS/HOME HEALTH CARE - Home Medications Comprehensive Discharge Medication List: Ambulatory Orders Amlodipine Bes/Olmesartan Med [Amlodipine-Olmesartan 5-40 mg] 1 each PO DAILY Atorvastatin Calcium 40 mg PO DAILY 05/31/17 Ezetimibe 10 mg PO DAILY 05/31/17 Levothyroxine [Synthroid -] 50 mcg PO DAILY 05/31/17 Acetaminophen [Tylenol .Extra-Strength -] 500 mg PO Q6H PRN #0 tablet 06/03/17 Atorvastatin Ca [Lipitor] 40 mg PO HS tablet 06/03/17 Cephalexin Monohydrate [Keflex -] 500 mg PO BID #14 cap 06/03/17 Levothyroxine [Synthroid -] 50 mcg PO DAILY@0700 tablet 06/03/17 Metoprolol Succinate [Toprol XL -] 50 mg PO DAILY #30 tab 06/03/17
[2017-06-03 12:08] VITALS: BP 126/73; PULSE 76; TEMP 98.2
--- NOTE | 2017-06-06 09:21 | EKG ---
Test Reason : Blood Pressure : / mmHG Vent. Rate : 108 BPM Atrial Rate : 108 BPM P-R Int : 164 ms QRS Dur : 078 ms QT Int : 324 ms P-R-T Axes : 044 -16 105 degrees QTc Int : 434 ms SINUS TACHYCARDIA MODERATE VOLTAGE CRITERIA FOR LVH, MAY BE NORMAL VARIANT ABNORMAL ECG NO PREVIOUS ECGS AVAILABLE Confirmed by TIFFANIE COBB MD ([id number]) on 06/06/2017 9:20:44 AM Referred By: Confirmed By:TIFFANIE COBB MD
== END 2017-06-03 12:20 | disposition home health service (06) | DRG 683 ==
LOC: JER 09:32 → JERBED 12:48 → J7W 14:01
PROVIDERS: ADMIT Family Medicine; ATTEND Family Medicine
DX: N17.9 Acute kidney failure, unspecified (principal); N39.0 Urinary tract infection, site not specified; E11.9 Type 2 diabetes mellitus without complications; R50.9 Fever, unspecified; I10 Essential (primary) hypertension; D72.829 Elevated white blood cell count, unspecified; E03.9 Hypothyroidism, unspecified; B96.1 Klebsiella pneumoniae [K. pneumoniae] as the cause of diseases classified elsewhere; E78.5 Hyperlipidemia, unspecified
CPT/HCPCS: 36415; 71020-TC; 76775-TC; 80048; 80053; 81003; 81015; 82553; 83735; 83880; 84484; 85025; 85027; 85651; 86140; 87040; 87086; 87186; 87804; 93005; 93010; 97116-GP; 97161-GP; 99285-25